=== PATIENT | male | born 1950 | race Caucasian/White ===

== ENCOUNTER → 2025-01-16 07:40 | Outpatient (REF) | payer MEDICARE, OTHER, SELFPAY | LOC: HWEVLT 07:40 | PROVIDERS: ATTENDING PHYSICIAN Radiology Vascular & Interventional Radiology | DX: I83.891 Varicose veins of right lower extremity with other complications (principal) | CPT/HCPCS: 93971 ==

== ENCOUNTER → 2025-05-10 08:07 | Outpatient (REF) | payer MEDICARE, OTHER, SELFPAY | LOC: HWEVLT 08:07 | PROVIDERS: ATTENDING PHYSICIAN Radiology Diagnostic Radiology | DX: I83.891 Varicose veins of right lower extremity with other complications (principal) | CPT/HCPCS: 36478; C1769 ==

== ENCOUNTER → 2025-05-24 14:11 | Outpatient (REF) | payer MEDICARE, OTHER, SELFPAY | LOC: HWEVLT 14:11 | PROVIDERS: ATTENDING PHYSICIAN Radiology Vascular & Interventional Radiology | DX: I83.891 Varicose veins of right lower extremity with other complications (principal) | CPT/HCPCS: 93971 ==